=== PATIENT | male | born 1960 | race Caucasian/White ===

== ENCOUNTER 2019-04-29 23:28 | Emergency (ER) | payer OTHER ==
[~2019-04-29] VITALS: Ht 170.2 cm; Wt 90.9 kg
[2019-04-30] MEDS ORDERED: ACETAMINOPHEN 325 MG TABLET PO ONE (01:30)
[2019-04-30] MEDS ORDERED: LIDOCAINE 5% TRANSDERMAL PATCH TD ONE (01:30)
[2019-04-30] MEDS ORDERED: KETOROLAC TROMETHAMINE 30 MG/ML VIAL IM ONE (01:30)
[2019-04-30] MEDS ORDERED: BACLOFEN 10 MG TABLET PO ONE (01:30)
[2019-04-30 03:06] VITALS: BP 128/80
[2019-04-30] MEDS ORDERED: GABAPENTIN 100 MG CAPSULE PO ONE (03:30)
== END 2019-04-30 03:36 | disposition home or self-care (01) ==
LOC: EMS 23:30
DX: S05.12XA Contusion of eyeball and orbital tissues, left eye, initial encounter (principal); S05.11XA Contusion of eyeball and orbital tissues, right eye, initial encounter; G89.29 Other chronic pain; W07.XXXA Fall from chair, initial encounter; Y93.89 Activity, other specified; Y92.89 Other specified places as the place of occurrence of the external cause; Y99.8 Other external cause status
CPT/HCPCS: 96372; 99284; J1885